=== PATIENT | male | born 1970 | race Caucasian/White ===

== ENCOUNTER 2021-06-12 11:30 | Outpatient (CLI) | payer OTHER ==
[2021-06-12 11:47] VITALS: BMI 38.2
[2021-06-12 23:48] LABS: SARS-CoV-2 PCR by NAA Not Detected (NotDetected)
== END 2021-06-12 11:31 | disposition home or self-care (01) ==
LOC: LABBT 11:30
PROVIDERS: ATTEND Neurological Surgery
DX: Z01.812 Encounter for preprocedural laboratory examination (principal); Z20.822 Contact with and (suspected) exposure to COVID-19
CPT/HCPCS: U0003; U0005

== ENCOUNTER 2021-06-17 06:20 | Day surgery (SDC) | payer OTHER ==
[2021-06-17] MEDS ORDERED: Lidocaine 2% Jelly 5 ML TUBE ONE (06:33)
[2021-06-17] MEDS ORDERED: Fentanyl 100 MCG/2 ML VIAL ONE ×3 (06:33→10:46)
[2021-06-17] MEDS ORDERED: EPINEPHrine 1 MG/ML AMP ONE (06:51)
[2021-06-17] MEDS ORDERED: Bupivacaine 0.25% HCL 30 ML VIAL ONE (06:51)
[2021-06-17] MEDS ORDERED: Thrombin 5000 UNITS/5 ML VIAL ONE (06:51)
[2021-06-17] MEDS ORDERED: ceFAZolin 2 GM/Dextrose 50 ML IVPB ONE ×2 (07:42→15:03)
[2021-06-17] MEDS ORDERED: Dexamethasone 20 MG/5 ML VIAL ONE (08:35)
[2021-06-17] MEDS ORDERED: Rocuronium Bromide 10 MG/ML (10ML VIAL) ONE (08:35)
[2021-06-17] MEDS ORDERED: Glycopyrrolate 0.2 MG/ML 5 ML SYRINGE ONE (08:35)
[2021-06-17] MEDS ORDERED: PROPOFOL 200 MG/20 ML VIAL ONE (08:35)
[2021-06-17] MEDS ORDERED: PHENYLEPHRINE-NS 100 MCG/ML 10 ML SYRINGE ONE (08:35)
[2021-06-17] MEDS ORDERED: Ondansetron PF 4 MG/2 ML Vial ONE (08:35)
[2021-06-17] MEDS ORDERED: Ketorolac Tromethamine 30 MG/ML VIAL ONE (08:35)
[2021-06-17] MEDS ORDERED: Lidocaine 1% PF 5 ML VIAL ONE (08:35)
[2021-06-17] MEDS ORDERED: Meperidine HCl/PF 25 MG/ML VIAL ONE (10:19)
[2021-06-17] MEDS ORDERED: Tamsulosin HCl 0.4 MG CAP ONE (10:30)
[2021-06-17] MEDS ORDERED: Cyclobenzaprine 10 MG TAB ONE (10:50)
[2021-06-17] MEDS ORDERED: HYDROmorphone 2 MG/ML VIAL ONE (11:05)
[2021-06-17] MEDS ORDERED: Lorazepam 2 MG/ML VIAL ONE (11:12)
== END 2021-06-17 17:00 | disposition home or self-care (01) ==
LOC: SDC 06:20
PROVIDERS: ATTEND Neurological Surgery
PROC: 01NB0ZZ Release Lumbar Nerve, Open Approach (ICD-10-PCS; principal; 2021-06-17)
DX: Q76.49 Other congenital malformations of spine, not associated with scoliosis (principal); M51.26 Other intervertebral disc displacement, lumbar region; M48.062 Spinal stenosis, lumbar region with neurogenic claudication; F17.200 Nicotine dependence, unspecified, uncomplicated
CPT/HCPCS: 76000; J0171; J0690; J1100; J1170; J1885; J2060; J2175; J2405; J2704; J3010; S0020